=== PATIENT | male | born 1980 | race Caucasian/White ===

== ENCOUNTER 2020-04-19 05:11 | Emergency (ER) | payer MEDICAID ==
[~2020-04-19] VITALS: Ht 170.2 cm; Wt 94.2 kg
--- NOTE | 2020-04-19 05:44 | NUR ---
assessment made. seen by ERP. IV placed. blood drawn.
[2020-04-19] MEDS ORDERED: DEXAMETHASONE 4 MG/ML, 5ML ONE (05:45)
--- NOTE | 2020-04-19 05:45 | NUR ---
patient to X ray.
[2020-04-19] MEDS ORDERED: SODIUM CHLORIDE FLUSH 10ML SYR IVF ONE (06:00)
[2020-04-19] MEDS ORDERED: AMPICILLIN/SULBACTAM 3 GM in SODIUM CHLORIDE 0.9% 100 ML IV ONE (06:00)
[2020-04-19] MEDS ORDERED: DEXAMETHASONE 4 MG/ML, 1ML IVPush ONE (06:00)
--- NOTE | 2020-04-19 06:00 | NUR ---
back from x ray. awaiting result.
[2020-04-19 06:07] LABS: ALBUMIN 3.7 g/dL (3.4-5.0); ANION GAP 7 mmol/L (5-15); BASOPHILS % (AUTO) 1 % (0-1); CALCIUM 9.2 mg/dL (8.5-10.1); CHLORIDE 110 mmol/L (98-107); CREATININE 1.21 mg/dL (0.7-1.3); EOSINOPHILS % (AUTO) 1 % (1-7); LYMPHOCYTES % (AUTO) 15 % (22-44); MEAN CORPUSCULAR HEMOGLOBIN 30.8 pg (27.5-34.5); MEAN CORPUSCULAR HGB CONC 34.1 g/dL (33.2-36.2); MEAN PLATELET VOLUME 7.7 fL (7.4-10.4); MONOCYTES % (AUTO) 8 % (2-9); NEUTROPHILS % (AUTO) 75 % (42-75); PLATELET COUNT 320 x10^3/uL (130-400); RED BLOOD COUNT 5.44 x10^6/uL (4.38-5.82); RED CELL DISTRIBUTION WIDTH 14.4 % (9.4-14.8)
--- NOTE | 2020-04-19 06:46 | NUR ---
report to GUILHERME Shelton
[2020-04-19 06:59] LABS: MD SCAN
--- NOTE | 2020-04-19 08:30 | NUR ---
PT REPORTS PAIN IN UNDER CONTROL, FLUIDS GIVEN VSS. AWAITING ENT
[2020-04-19 09:34] VITALS: BP 134/97
== END 2020-04-19 09:37 | disposition home or self-care (01) ==
LOC: ED 07:15
DX: K04.7 Periapical abscess without sinus (principal); K08.89 Other specified disorders of teeth and supporting structures; R22.0 Localized swelling, mass and lump, head; F17.290 Nicotine dependence, other tobacco product, uncomplicated
CPT/HCPCS: 36415; 70100; 80048; 82040; 85025; 96365; 96375; 99285; J0295; J1100

== ENCOUNTER 2021-03-13 08:22 | Emergency (ER) | payer MEDICAID ==
[~2021-03-13] VITALS: Ht 170.2 cm; Wt 93.6 kg
--- NOTE | 2021-03-13 08:37 | NUR ---
PT AMBULATORY TO ROOM FROM TRIAGE, CHANGED INTO GOWN, MONITORS IN PLACE. PT C/O RIGHT THIGH PAIN FOR THE LAST 3 WEEKS. PT DENIES TRAUMA, STATED IT CAME ON SUDDENLY AND HAS BEEN WORKING SO HE WAS NOT ABLE TO GET IT CHECKED OUT UNTIL NOW. AT BS. CALL LIGHT WITHIN REACH
--- NOTE | 2021-03-13 08:50 | NUR ---
PA AT BS
[2021-03-13 09:52] VITALS: BP 130/86
--- NOTE | 2021-03-13 09:53 | NUR ---
PT RESTING ON GHAZAL READ/GRACE. AT BS. CALL LIGHT WITHIN REACH. AWAITING US RESULTS. PT DENIES ANY NEEDS AT THIS TIME
--- NOTE | 2021-03-13 10:00 | NUR ---
pa at for recheck/dc instructions
--- NOTE | 2021-03-13 10:05 | NUR ---
Patient given discharge instructions and rx, they have confirmed that they understand the instructions. Patient ambulatory with steady gait.
== END 2021-03-13 10:06 | disposition home or self-care (01) ==
LOC: ED 09:11
DX: M79.651 Pain in right thigh (principal); G57.11 Meralgia paresthetica, right lower limb; F17.200 Nicotine dependence, unspecified, uncomplicated
CPT/HCPCS: 82962; 99284